=== PATIENT | male | born 1995 | race African-American/Black ===

== ENCOUNTER 2017-04-07 19:20 | Emergency (ER) | payer OTHER ==
[~2017-04-07] VITALS: Ht 182.9 cm; Wt 90.7 kg
[2017-04-07 21:33] VITALS: BP 136/72
[2017-04-07] MEDS ORDERED: methylPREDNISolone SOD SUCC 125 MG/2 ML VL IM ONE (23:00)
[2017-04-07] MEDS ORDERED: KETOROLAC TROMETH 60MG/2ML VIAL IM ONE (23:00)
== END 2017-04-07 23:33 | disposition home or self-care (01) ==
LOC: ER 19:20
DX: S33.5XXA Sprain of ligaments of lumbar spine, initial encounter (principal); M79.1 Myalgia; X50.3XXA Overexertion from repetitive movements, initial encounter; Y93.89 Activity, other specified; Y92.89 Other specified places as the place of occurrence of the external cause; Y99.0 Civilian activity done for income or pay
CPT/HCPCS: 72100; 96372; 99284; J1885; J2930

== ENCOUNTER 2021-01-31 13:37 | Emergency (ER) | payer OTHER, SELFPAY ==
[~2021-01-31] VITALS: Ht 185.4 cm; Wt 106.6 kg
[2021-01-31 17:03] VITALS: BP 125/75
== END 2021-01-31 17:12 | disposition home or self-care (01) ==
LOC: ER 13:37
DX: U07.1 COVID-19 (principal); J03.90 Acute tonsillitis, unspecified
CPT/HCPCS: 36415; 71045; 87426